=== PATIENT | female | born 1990 | race Caucasian/White ===

== ENCOUNTER 2021-12-29 07:59 | Emergency (ER) | payer OTHER, SELFPAY ==
[2021-12-29 08:02] VITALS: BP 111/78; PULSE 89; RESP 22; TEMP 36.6; O2SAT 98; BMI 77.0
[2021-12-29 08:18] VITALS: BP 111/78; PULSE 89; RESP 22; TEMP 36.6; O2SAT 98
--- NOTE | 2021-12-29 08:26 | CRLHL7_ITS ---
For Patients: As a result of the Century Cures Act, medical imaging exams and procedure reports are released immediately into your electronic medical record. You may view this report before your referring provider. If you have questions, please contact your health care provider. INDICATION: Lower abdominal pain press failed embryo transfer 12/24/2021. TECHNIQUE: Ultrasound pelvis transvaginal for better assessment or to better visualize the endometrium. Real-time sonographic images with spectral and color Doppler imaging of the ovaries were obtained. COMPARISON: Pelvic ultrasound 02/12/2021. FINDINGS: Uterus: 8.2 x 6.5 x 4.3 cm. Normal echotexture of the myometrium. One right submucosal anterior uterine body fibroid measuring 11 x 11 x 8 mm. Endometrium: Transvaginal imaging was performed to better evaluate the endometrium. Endometrial thickness measures 7 mm. No sign of endometrial mass or fluid. Right ovary measures 4.2 x 2.7 x 2.5 cm and left ovary measures 3.7 x 2.1 x 2.5 cm. Right ovarian cyst measuring 2.1 x 1.1 x 1.6 cm. No ovarian or adnexal masses. Normal arterial and venous blood flow is demonstrated in both ovaries. Cul-de-sac: Trace free fluid. IMPRESSION: 1. Right 2.1 cm adnexal cyst. Trace pelvic free fluid. 2. Small anterior uterine body subserosal fibroid. Dictated by Adam Hurd MD @ 12/29/2021 10:00:23 AM (Electronically Signed)
--- NOTE | 2021-12-29 08:26 | CRLHL7_ITS ---
For Patients: As a result of the Century Cures Act, medical imaging exams and procedure reports are released immediately into your electronic medical record. You may view this report before your referring provider. If you have questions, please contact your health care provider. INDICATION: Left lower abdominal pain and pressure TECHNIQUE: CT abdomen and pelvis with 106 mL of Isovue 370 IV contrast. COMPARISON: Pelvic ultrasound 12/29/2021. FINDINGS: The liver is normal in size, shape and attenuation. Gallbladder and biliary tree are normal. The spleen, adrenal glands and pancreas are within normal limits. The kidneys are unremarkable. The bowel is unremarkable. No significant free fluid and no free air. Small right adnexal cyst. No significant pelvic free fluid. The lower chest is unremarkable. IMPRESSION: No evidence of acute intra-abdominal or pelvic abnormality. Please note that all CT scans at this facility use dose modulation, iterative reconstruction, and/or weight-based dosing when appropriate to reduce radiation dose to as low as reasonably achievable. Dictated by Adam Hurd MD @ 12/29/2021 10:07:55 AM (Electronically Signed)
--- NOTE | 2021-12-29 08:29 | ED.GENADULT ---
HPI - General Adult General Time Seen by Provider: 08:29 Date Seen: 12/29/21 Chief complaint: Abdominal Pain Stated complaint: Pain lower left abdomen Time Seen by Provider: 12/29/21 08:21 Source: patient Mode of arrival: ambulatory Limitations: no limitations History of Present Illness HPI narrative: Patient is a 31 white female who has been undergoing in vitro fertilization, but had a negative test last week, who has a history of 2 diagnostic laparoscopic treatments for endometriosis, presents with sudden left lower abdominal pain that is been quite severe, she reports that it feels like someone is ?gripping her insides?. This started about 330 this morning, she has needed since last night. No fevers chills, no dysuria, no hematuria. No chest pain, no shortness of breath, no COVID symptoms. No cough. No history of similar sharp abdominal pain other than with endometriosis she had some difficulty with that. No skin rashes, no leg swelling or edema. Related Data Home Medications Medication Instructions Recorded Confirmed aspirin 81 mg chewable tablet 81 mg PO DAILY 12/29/21 12/29/21 cholecalciferol (vitamin D3) 100 4,000 unit PO DAILY 12/29/21 12/29/21 mcg (4,000 unit) capsule levothyroxine 25 mcg tablet mcg 12/29/21 metformin 500 mg tablet,extended mg PO 12/29/21 release 24 hr oxycodone 5 mg tablet mg 12/29/21 [id number] 1 mg tab PO 12/29/21 tablet triamcinolone acetonide 0.1 % applic TOPICAL 12/29/21 topical cream Previous Rx's Medication Instructions Recorded cephalexin 500 mg capsule 500 mg PO BID #14 cap 12/29/21 Allergies Allergy/AdvReac Type Severity Reaction Status Date / Time chocolate flavor Allergy Severe Anaphylaxis Verified 12/29/21 08:12 adhesive Allergy Mild Verified 12/29/21 08:12 tramadol Allergy Mild vomiting Verified 12/29/21 08:12 and shakes blueberries Allergy Mild upset Uncoded 12/29/21 08:12 stomach Review of Systems Status of ROS: Reports: 10 or more systems reviewed and unremarkable except as noted in History and below [facility] Medical History (Updated 12/29/21 @ 09:07 by Montse Mittal RN) Cervical endometriosis Tubal endometriosis Social History Smoking Status: Never smoker Do you use any of these nicotine containing products: None Second hand tobacco smoke exposure: No How often do you have a drink containing alcohol: never AUDIT-C Alcohol total score: 0 Non-prescribed substance use: denies use service: No Exam Narrative: Exam Narrative: Objective in general the patient is in no marked distress, slightly pale Vital Signs recorded HEENT is unremarkable no scleral icterus, neck supple Chest is clear Heart rhythm regular without murmur Abdomen obese benign nontender post laparoscopic skin scars present. Bowel sounds normoactive patient has some voluntary guarding the left lateral to lower quadrant of her abdomen bowel sounds normoactive Extremities are no edema Neurologic nonfocal Skin warm and dry No flank tenderness Const: Vital Signs, click to edit/add: Vital Signs - 24 hr 12/29/21 08:02 12/29/21 08:18 12/29/21 11:00 Temperature 97.9 F 97.9 F Pulse Rate [Right Pulse Oximeter] 89 89 88 Respiratory Rate 18 Blood Pressure [Ri ght Upper Arm] 111/78 111/78 Pulse Oximetry 98 98 97 Course Vital Signs Vital signs: Initial Vital Signs Temperature 97.9 F 12/29/21 08:02 Temperature Source Temporal Artery Scan 12/29/21 08:02 Pulse Rate 89 12/29/21 08:02 Pulse Rhythm 12/29/21 08:02 Respiratory Rate 22 12/29/21 08:02 Blood Pressure 111/78 12/29/21 08:02 Blood Pressure Mean 89 12/29/21 08:02 Blood Pressure Position Sitting 12/29/21 08:02 Pulse Oximetry 98 12/29/21 08:02 Oxygen Delivery Method 12/29/21 08:02 Vital Signs Temperature 97.9 F 12/29/21 08:02 Pulse Rate 89 12/29/21 08:02 Respiratory Rate 22 12/29/21 08:02 Blood Pressure 111/78 12/29/21 08:02 Pulse Oximetry 98 12/29/21 08:02 Temperature 97.9 F 12/29/21 08:18 Pulse Rate 88 12/29/21 11:00 Respiratory Rate 18 12/29/21 11:00 Blood Pressure 111/78 12/29/21 08:18 Pulse Oximetry 97 12/29/21 11:00 Medical Decision Making MDM Narrative Medical decision making narrative: Patient will be started on IV with morphine as well. Will check test. Depending on test will get pelvic ultrasound, CT scan of the abdomen pelvis with IV contrast given her degree of pain, rule out obstruction, rule out diverticulitis, rule out ovarian torsion. Be unlikely she has an ectopic given that she had a negative test last week but this will be checked again. IV fluid and pain control. Laboratory studies, electrolytes, inflammatory markers. Patient has what appears to be a presumed ET UTI, we treated with IV Rocephin, Keflex at home. Discussed the case with Dr. Sawant, patient given her equivocal hCG quantitative needs a repeat in 48 hours. She lasted a embryo transplant for IVF and December. She does have a significant amount of vaginal bleeding consistent with a period bleed now. But needs repeat hCG as mention. Light activity, Tylenol as needed. Return to ED as needed, consult with [facility] as needed. Also recommend she contact her IVF clinic for additional discussion. Patient understands with the acuity of her abdominal pain that imaging and workup were appropriate, Dr. Lira agreed, and will schedule follow-up with patient in 2 days with a preclinic quantitative HCG. Lab Data Labs: Lab Results 12/29/21 12/29/21 12/29/21 Range/Units 08:47 08:47 08:47 WBC 8.07 (4.50-11.00) K/uL RBC 4.77 (4.00-5.20) m/uL Hgb 14.0 (12.0-16.0) gm/dL Hct 42.6 (33.0-51.0) % MCV 89 (80-100) fL MCH 29 (26-34) pg MCHC 33 (32-36) gm/dL RDW Coeff of Gentry 12.8 (11.5-15.5) % Plt Count 338 (140-440) K/uL Neut % (Auto) 78.3 H (42.0-72.0) % Lymph % (Auto) 13.0 L (20-44) % [place] % (Auto) 8.4 (0.0-11.0) % Eos % (Auto) 0.1 (0.0-7.0) % Baso % (Auto) 0.1 (0.0-3.0) % Neut # (Auto) 6.30 (1.7-7.0) K/uL Lymph # (Auto) 1.00 (0.90-2.90) K/uL [place] # (Auto) 0.70 (0.00-0.90) K/UL Eos # (Auto) 0.01 (0.00-0.50) K/uL Baso # (Auto) 0.01 (0.00-0.30) K/uL Abs Immat Gran (auto) 0.01 (0.00-0.30) K/uL Sodium 138 (135-149) mmol/L Potassium 3.9 (3.6-5.1) mmol/L Chloride 107 (96-114) mmol/L Carbon Dioxide 20 (20-32) mmol/L BUN 11 (5-24) mg/dL Creatinine 0.7 (0.5-1.5) mg/dL Estimated Creat Clear 103.82 Estimated GFR 118 ml/min Glucose 95 (60-115) mg/dL Lactate 1.7 (0.5-1.9) mmol/L Calcium 9.4 (8.4-10.6) mg/dL Total Bilirubin 0.3 (0.1-1.5) mg/dL Direct Bilirubin 0.3 (0.0-0.5) mg/dL AST 30 (12-35) U/L ALT 11 (4-35) U/L Alkaline Phosphatase 122 (40-150) U/L C-Reactive Protein 3.6 H (0.5-1.0) mg/dL Total Protein 8.5 H (6.0-8.3) g/dL Albumin 4.6 (3.3-5.0) g/dL Amylase 115 H (18-89) U/L HCG, Quant 9.99 mIU/mL Urine Color (Yellow) Urine Appearance (Clear) Urine pH (5.0-8.5) Ur Specific [place] (1.000-1.030) Urine Protein (Negative) Urine Glucose (UA) (Negative) Urine Ketones (Negative) Urine Blood (Negative) Urine Nitrite (Negative) Urine Bilirubin (Negative) Urine Urobilinogen (0.2-1.0) Ur Leukocyte Esterase (Negative) Urine RBC (0-2) Urine WBC (0-5) Ur Squamous Epith Cells (None-Few) Urine Bacteria (None) SARS-CoV-2 (PCR) (Negative) 12/29/21 12/29/21 Range/Units 08:50 08:50 WBC (4.50-11.00) K/uL RBC (4.00-5.20) m/uL Hgb (12.0-16.0) gm/dL Hct (33.0-51.0) % MCV (80-100) fL MCH (26-34) pg MCHC (32-36) gm/dL RDW Coeff of Gentry (11.5-15.5) % Plt Count (140-440) K/uL Neut % (Auto) (42.0-72.0) % Lymph % (Auto) (20-44) % [place] % (Auto) (0.0-11.0) % Eos % (Auto) (0.0-7.0) % Baso % (Auto) (0.0-3.0) % Neut # (Auto) (1.7-7.0) K/uL Lymph # (Auto) (0.90-2.90) K/uL [place] # (Auto) (0.00-0.90) K/UL Eos # (Auto) (0.00-0.50) K/uL Baso # (Auto) (0.00-0.30) K/uL Abs Immat Gran (auto) (0.00-0.30) K/uL Sodium (135-149) mmol/L Potassium (3.6-5.1) mmol/L Chloride (96-114) mmol/L Carbon Dioxide (20-32) mmol/L BUN (5-24) mg/dL Creatinine (0.5-1.5) mg/dL Estimated Creat Clear Estimated GFR ml/min Glucose (60-115) mg/dL Lactate (0.5-1.9) mmol/L Calcium (8.4-10.6) mg/dL Total Bilirubin (0.1-1.5) mg/dL Direct Bilirubin (0.0-0.5) mg/dL AST (12-35) U/L ALT (4-35) U/L Alkaline Phosphatase (40-150) U/L C-Reactive Protein (0.5-1.0) mg/dL Total Protein (6.0-8.3) g/dL Albumin (3.3-5.0) g/dL Amylase (18-89) U/L HCG, Quant mIU/mL Urine Color Red A (Yellow) Urine Appearance Cloudy A (Clear) Urine pH 6.0 (5.0-8.5) Ur Specific [place] 1.010 (1.000-1.030) Urine Protein 2+ A (Negative) Urine Glucose (UA) Negative (Negative) Urine Ketones Negative (Negative) Urine Blood 3+ A (Negative) Urine Nitrite Negative (Negative) Urine Bilirubin Negative (Negative) Urine Urobilinogen 0.2 (0.2-1.0) Ur Leukocyte Esterase 2+ A (Negative) Urine RBC >100 A (0-2) Urine WBC 25-50 A (0-5) Ur Squamous Epith Cells Moderate A (None-Few) Urine Bacteria Few A (None) SARS-CoV-2 (PCR) POSITIVE SARS-CoV-2 A (Negative) Discharge Plan Discharge Clinical Impression: Abdominal pain, Endometriosis Patient Disposition: Home w/ Parent or Adult Condition: Improved Additional Instructions: light activity, recheck clinic 2 days/blood test before visit, fluids, tylenol. mask due to pos covid. keflex x 7 days for presumed uti [facility] with an 8am arrival time. Follow up appointment for your results are also scheduled on 12/31 with a 2:30pm arrival time. Discharge Diet: Regular Prescriptions: New cephalexin 500 mg capsule 500 mg PO BID Qty: 14 0RF No Action triamcinolone acetonide 0.1 % cream TOPICAL 0RF Label Comments: APPLY TOPICALLY TO THE AFFECTED AREA THREE TIMES DAILY levothyroxine 25 mcg tablet 0RF Label Comments: TAKE 1 TABLET BY MOUTH EVERY DAY DIRECTED metformin 500 mg tablet extended release 24 hr PO 0RF Label Comments: TAKE 1 TABLET BY MOUTH TWICE DAILY FOR 2 WEEKS. INCREASE TO 2 TABLETS BY MOUTH 2 TIMES DAILY oxycodone 5 mg tablet 0RF Label Comments: 5 MG PO Q6H PRN MDD: 20 aspirin 81 mg tablet,chewable 81 mg PO DAILY 0RF cholecalciferol (vitamin D3) 100 mcg (4,000 unit) capsule 4,000 unit PO DAILY 0RF pkzokvvl-ubp-Hi-FA 1 mg tablet PO 0RF Stand Alone Forms: [facility] Info Instructions
[2021-12-29] MEDS: MORPHINE 4 MG/ML INJ IVP (08:51)
[2021-12-29] MEDS: 0.9 % SODIUM CHLORIDE 1000 ml 1,000 ML 6000 ML IV (08:51)
[2021-12-29 09:02] LABS: Lactate* 1.7 mmol/L (0.5-1.9)
[2021-12-29 09:03] LABS: Basophils Absolute Auto 0.01 K/uL (0.00-0.30); Basophils Percent Auto 0.1 % (0.0-3.0); Eosinophils Absolute Auto 0.01 K/uL (0.00-0.50); Eosinophils Percent Auto 0.1 % (0.0-7.0); Hematocrit 42.6 % (33.0-51.0); Immature Granulocytes Abs Auto 0.01 K/uL (0.00-0.30); Mean Corpuscular HGB Conc 33 gm/dL (32-36); Mean Corpuscular Hemoglobin 29 pg (26-34); Mean Corpuscular Volume 89 fL (80-100); Monocytes Percent Auto 8.4 % (0.0-11.0); Neutrophils Percent Auto 78.3 % (42.0-72.0); Platelet Count* 338 K/uL (140-440); RDW Coefficient of Variation % 12.8 % (11.5-15.5); Red Blood Count 4.77 m/uL (4.00-5.20); White Blood Count* 8.07 K/uL (4.50-11.00)
[2021-12-29 09:03] LABS: Appearance Urine Cloudy (Clear); Bilirubin Urine Negative (Negative); Color Urine Red (Yellow); Glucose Urine Negative (Negative); Ketones Urine Negative (Negative)
[2021-12-29 09:04] LABS: Blood Urine 3+ (Negative); Leukocyte Esterase Urine 2+ (Negative); Nitrite Urine Negative (Negative); Protein Urine 2+ (Negative); Urobilinogen Urine 0.2 (0.2-1.0)
[2021-12-29 09:12] LABS: RBC Urine >100 (0-2)
[2021-12-29 09:13] LABS: Bacteria Urine Few; Squamous Epithelial Cell Urine Moderate (None-Few); WBC Urine 25-50 (0-5)
[2021-12-29 09:21] LABS: Albumin* 4.6 g/dL (3.3-5.0); Chloride* 107 mmol/L (96-114); Sodium* 138 mmol/L (135-149)
[2021-12-29 09:22] LABS: Potassium* 3.9 mmol/L (3.6-5.1)
[2021-12-29 09:23] LABS: Amylase* 115 U/L (18-89); Creatinine* 0.7 mg/dL (0.5-1.5); Est. Creatinine Clearance* 103.82; Estimated Glomerular Filt Rate 118 ml/min
[2021-12-29 09:24] LABS: Alanine Aminotransferase* 11 U/L (4-35); Alkaline Phosphatase* 122 U/L (40-150); Aspartate Amino Transferase* 30 U/L (12-35); Bilirubin Direct* 0.3 mg/dL (0.0-0.5); Bilirubin Total* 0.3 mg/dL (0.1-1.5); Blood Urea Nitrogen* 11 mg/dL (5-24); Carbon Dioxide* 20 mmol/L (20-32); Glucose* 95 mg/dL (60-115); Total Protein* 8.5 g/dL (6.0-8.3)
[2021-12-29 09:25] LABS: Calcium* 9.4 mg/dL (8.4-10.6)
[2021-12-29 09:27] LABS: C Reactive Protein* 3.6 mg/dL (0.5-1.0)
[2021-12-29 09:33] LABS: Slide Review Reflex No
[2021-12-29 09:41] LABS: HCG Quantitative* 9.99 mIU/mL
[2021-12-29 09:54] LABS: SARS PCR* POSITIVE SARS-CoV-2 (Negative)
[2021-12-29] MEDS: HYDROmorphone 0.5 mg/0.5 ml inj IVP (10:36)
[2021-12-29] MEDS: cefTRIAXone 1 GM in 0.9 % SODIUM CHLORIDE Mini-bag 100 ML IVPB (10:41)
[2021-12-29 11:00] VITALS: PULSE 88; RESP 18; O2SAT 97
== END 2021-12-29 11:54 | disposition home or self-care (01) ==
PROVIDERS: Emergency Provider Family Medicine; PCP Physician Assistant Medical
DX: N80.9 Endometriosis, unspecified (principal)
CPT/HCPCS: 36415; 74177; 76830; 80048; 80076; 81001; 82150; 83605; 84702; 85025; 86140; 87086; 87635; 93976; 96365; 96375; 99284; 99285; J0696; J1170; J2270; J7030; Q9967

== ENCOUNTER 2021-12-31 16:36 | Outpatient (CLI) | payer OTHER, SELFPAY ==
[2021-12-31 11:22] LABS: HCG Quantitative* < 2.39 mIU/mL
== END 2021-12-31 16:37 | disposition home or self-care (01) ==
PROVIDERS: PCP Physician Assistant Medical; Visit Provider Physician Assistant
DX: R10.9 Unspecified abdominal pain (principal)
CPT/HCPCS: 84702

== ENCOUNTER 2022-09-16 07:01 | Outpatient (CLI) | payer OTHER, SELFPAY ==
--- NOTE | 2022-09-16 07:15 | CRLHL7_ITS ---
For Patients: As a result of the Century Cures Act, medical imaging exams and procedure reports are released immediately into your electronic medical record. You may view this report before your referring provider. If you have questions, please contact your health care provider. INDICATION: First trimester scan, establish dates. COMPARISON: None. TECHNIQUE: Real-time gibbons-scale imaging of the pelvis was performed. FINDINGS: Two gestational sacs are present within the endometrial canal. Left-sided subchorionic hemorrhage noted measuring 3.1 x 1.5 x 2.8 cm. Small uterine fibroid is present posteriorly measuring 1.3 x 1.1 x 1.1 cm. One gestational sac has a mean sac diameter of 21.4 millimeters and contains a pole measuring 9.8 millimeters, 7 weeks 0 days. However, there are no heart tones with this pole. Second gestational sac is present. This contains a viable pole measuring 1.9 cm, 8 weeks 3 days and heart rate 169 beats per minute. Both ovaries appear normal. Corpus luteal cyst left ovary. IMPRESSION: Single living intrauterine with sonographic gestational age 8 weeks 3 days and sonographic due date 04/25/2023. Left-sided subchorionic hemorrhage measuring 3.1 x 1.5 x 2.8 cm. Small posterior intramural fibroid measuring 1.3 x 1.1 x 1.1 cm within the mid uterus. Nonviable 2nd pole within a separate gestational sac. Dictated by Matthew Dorman MD @ 09/16/2022 10:15:49 AM (Electronically Signed)
== END 2022-09-16 07:02 | disposition home or self-care (01) ==
PROVIDERS: PCP Physician Assistant Medical; Visit Provider Registered Nurse
DX: O20.9 Hemorrhage in early pregnancy, unspecified (principal); Z34.91 Encounter for supervision of normal pregnancy, unspecified, first trimester; Z3A.08 8 weeks gestation of pregnancy
CPT/HCPCS: 0353U; 76817; 84443; 86592; 86703; 86762; 86787; 86803; 86850; 86900; 86901; 87086; 87340; 87491; 87591

== ENCOUNTER 2022-09-16 22:05 | Emergency (ER) | payer OTHER, SELFPAY ==
[2022-09-16 22:10] VITALS: BP 147/87; PULSE 107; RESP 18; TEMP 37; O2SAT 99; BMI 36.6
--- NOTE | 2022-09-16 22:19 | CRLHL7_ITS ---
For Patients: As a result of the Century Cures Act, medical imaging exams and procedure reports are released immediately into your electronic medical record. You may view this report before your referring provider. If you have questions, please contact your health care provider. INDICATION: 1st trimester bleeding COMPARISON: 09/16/2022 TECHNIQUE: Real-time gibbons-scale imaging of the pelvis was performed. FINDINGS: Lower uterine segment blood products are present measuring 2.4 x 1.0 x 1.7 cm. Single living pole is again noted with crown-rump length measuring 1.9 cm, 8 weeks 3 days, heart rate 169 beats per minute, unchanged from earlier today. demise of twin gestation again noted. IMPRESSION: Blood products are now present within the lower uterine segment compared to the prior study. Dictated by Matthew Dorman MD @ 09/18/2022 10:29:28 AM (Electronically Signed)
--- NOTE | 2022-09-16 22:24 | ED.PREGNANCY ---
HPI - General Chief complaint: Vaginal Bleeding Stated complaint: 8 weeks , Active bleeding Time Seen by Provider: 09/16/22 22:23 History of Present Illness HPI Narrative: Patient is a 32-year-old woman who is 8 weeks with her 3rd who began as spontaneous bleeding of bright red blood per vagina 1 hour ago. She has no abdominal pain no cramping. No passage of clots. She has had no nausea no vomiting no fevers no chills. She has had previous miscarriages. She states that she is B negative blood type. She had her 1st OB appointment today and all went well. Related Data Home Medications Medication Instructions Recorded Confirmed aspirin 81 mg chewable tablet 81 mg PO DAILY 12/29/21 09/16/22 cholecalciferol (vitamin D3) 100 4,000 unit PO DAILY 12/29/21 09/16/22 mcg (4,000 unit) capsule flolwajz-gat-Dj-FA 1 mg tab PO 12/29/21 09/16/22 tablet triamcinolone acetonide 0.1 % applic topical 12/29/21 09/16/22 topical cream enoxaparin 40 mg/0.4 mL 40 mg subcut Q24H 09/16/22 09/16/22 subcutaneous syringe (Lovenox) estradiol 2 mg tablet (Estrace) 2 mg PO BID 09/16/22 09/16/22 levothyroxine 50 mcg capsule 50 mcg PO QDAY 09/16/22 09/16/22 metformin 500 mg tablet,extended 1,000 mg PO BID 09/16/22 09/16/22 release 24 hr progesterone 50 mg/mL 50 mg IM QDAY 09/16/22 09/16/22 intramuscular oil Allergies Allergy/AdvReac Type Severity Reaction Status Date / Time chocolate flavor Allergy Severe Anaphylaxis Verified 09/16/22 10:50 adhesive Allergy Mild Verified 09/16/22 10:50 tramadol Allergy Mild vomiting Verified 09/16/22 10:50 and shakes blueberries Allergy Mild upset Uncoded 09/16/22 10:50 stomach Review of Systems Status of ROS: Reports: 10 or more systems reviewed and unremarkable except as noted in History and below [facility] Medical History Cervical endometriosis ?N80.0 - Endometriosis of uterus (ICD-10) Endometriosis ?N80.9 - Endometriosis, unspecified (ICD-10) GERD (gastroesophageal reflux disease) ?K21.9 - Gastro-esophageal reflux disease without esophagitis (ICD-10) Tubal endometriosis ?N80.2 - Endometriosis of fallopian tube (ICD-10) Surgical History History of arthroscopic knee surgery ?Z98.890 - Other specified postprocedural states (ICD-10) History of bilateral salpingectomy ?Z90.79 - Acquired absence of other genital organ(s) (ICD-10) History of laparoscopy ?Z98.890 - Other specified postprocedural states (ICD-10) History of open reduction and internal fixation (ORIF) procedure ?Z98.890 - Other specified postprocedural states (ICD-10) Family History Family/Other Coronary artery disease Stroke High blood pressure High cholesterol Paternal Grandmother Cancer Social History Smoking Status: Former smoker Do you use any of these nicotine containing products: None Second hand tobacco smoke exposure: No How often do you have a drink containing alcohol: never AUDIT-C Alcohol total score: 0 Non-prescribed substance use: denies use Little interest or pleasure in doing things: not at all Feeling down, depressed, or hopeless: several days service: No Exam Narrative: Exam Narrative: EXAM GENERAL: Patient appears comfortable and well. EYES: No scleral icterus. ENT: Tympanic membranes and oropharynx normal. THYROID: no thyroid nodules or thyromegaly. LYMPH: No supraclavicular or cervical lymphadenopathy. SKIN: Visible skin seen during exam normal or with benign process only. EXT: No dependent lower extremity pedal edema. HEART: Regular rate and rhythm with no murmurs, rubs, or gallops. LUNGS: Clear to auscultation bilaterally with no crackles or wheezes. ABD: Soft, non tender, non distended. PSYCH: Good eye contact, speech is not pressured. Const: Vital Signs, click to edit/add: Vital Signs - 24 hr 09/16/22 22:10 09/16/22 23:00 09/17/22 00:01 Temperature 98.6 F Pulse Rate [Pulse Oximeter] 107 H 91 90 Respiratory Rate 18 18 18 Blood Pressure [Le ft Upper Arm] 147/87 H 118/63 131/63 Pulse Oximetry 99 98 98 Oxygen Delivery Me thod Room Air Room Air Room Air Course Course Hospital Course: Patient seen examined. 1 L of normal saline given CBC basic metabolic panel quantitative beta HCG and OB ultrasound ordered. Vital Signs Vital signs: Initial Vital Signs Temperature 98.6 F 09/16/22 22:10 Temperature Source Temporal Artery Scan 09/16/22 22:10 Pulse Rate 107 H 09/16/22 22:10 Respiratory Rate 18 09/16/22 22:10 Blood Pressure 147/87 H 09/16/22 22:10 Blood Pressure Mean 107 09/16/22 22:10 Blood Pressure Position Sitting 09/16/22 22:10 Pulse Oximetry 99 09/16/22 22:10 Oxygen Delivery Method Room Air 09/16/22 22:10 Vital Signs Temperature 98.6 F 09/16/22 22:10 Pulse Rate 107 H 09/16/22 22:10 Respiratory Rate 18 09/16/22 22:10 Blood Pressure 147/87 H 09/16/22 22:10 Pulse Oximetry 99 09/16/22 22:10 Oxygen Delivery Method Room Air 09/16/22 22:10 Temperature 98.6 F 09/16/22 22:10 Pulse Rate 90 09/17/22 00:01 Respiratory Rate 18 09/17/22 00:01 Blood Pressure 131/63 09/17/22 00:01 Pulse Oximetry 98 09/17/22 00:01 Oxygen Delivery Method Room Air 09/17/22 00:01 MDM - OB/Uterine Contractions MDM Narrative Medical decision making narrative: Patient is a 32-year-old woman who has had 2 previous miscarriages as endometriosis who is undergoing in vitro fertilization. She is caring twins but unfortunately 1 of the twins had demise 2 weeks ago. Patient was in to see Ob today and ultrasound showed demise of fetus a with healthy appearing fetus B. all was going well patient is on Lovenox and aspirin. Patient began bleeding less than a pad an hour approximatly an hour prior to arrival. Laboratory studies are finding upon my review ultrasound shows unchanged of fetus B with demise of feet his a. I did review the case with OBGYN in the do recommend discontinuing the Lovenox with outpatient follow-up this week. Patient's blood type is B negative and we did give her RhoGAM. Patient is discharged home to continue her current care and follow up with OB as described. Differential diagnosis includes spontaneous placenta previa placenta abruption demise Lab Data Labs: Lab Results 09/16/22 Range/Units 22:32 WBC 13.12 H (4.50-11.00) K/uL RBC 4.29 (4.00-5.20) m/uL Hgb 12.5 (12.0-16.0) gm/dL Hct 37.6 (33.0-51.0) % MCV 88 (80-100) fL MCH 29 (26-34) pg MCHC 33 (32-36) gm/dL RDW Coeff of Gentry 13.3 (11.5-15.5) % Plt Count 420 (140-440) K/uL Neut % (Auto) 75.9 H (42.0-72.0) % Lymph % (Auto) 17.6 L (20-44) % [place] % (Auto) 5.0 (0.0-11.0) % Eos % (Auto) 0.4 (0.0-7.0) % Baso % (Auto) 0.1 (0.0-3.0) % Neut # (Auto) 10.00 H (1.7-7.0) K/uL Lymph # (Auto) 2.30 (0.90-2.90) K/uL [place] # (Auto) 0.70 (0.00-0.90) K/UL Eos # (Auto) 0.10 (0.00-0.50) K/uL Baso # (Auto) 0.00 (0.00-0.30) K/uL Sodium 133 L (135-149) mmol/L Potassium 4.1 (3.6-5.1) mmol/L Chloride 105 (96-114) mmol/L Carbon Dioxide 21 (20-32) mmol/L BUN 12 (5-24) mg/dL Creatinine 0.7 (0.5-1.5) mg/dL Estimated Creat Clear 102.86 Estimated GFR 117 ml/min Glucose 113 (60-115) mg/dL Calcium 10.0 (8.4-10.6) mg/dL HCG, Quant > 09098.00 mIU/mL Discharge Plan Discharge Clinical Impression: Vaginal bleeding Patient Disposition: Home, Self-Care Condition: Stable Additional Instructions: Discontinue Lovenox Continue cares previous Report any changes in bleeding Follow-up with OBGYN this coming week. Activity Level: No Restrictions Discharge Diet: Regular Prescriptions: No Action levothyroxine 50 mcg capsule 50 mcg PO QDAY progesterone 50 mg/mL oil 50 mg IM QDAY estradiol [Estrace] 2 mg tablet 2 mg PO BID Patient Comments: vaginally enoxaparin [Lovenox] 40 mg/0.4 mL syringe 40 mg subcut Q24H triamcinolone acetonide 0.1 % cream TOPICAL Patient Comments: APPLY TOPICALLY TO THE AFFECTED AREA THREE TIMES DAILY aspirin 81 mg tablet,chewable 81 mg PO DAILY cholecalciferol (vitamin D3) 100 mcg (4,000 unit) capsule 4,000 unit PO DAILY mzbuhmva-hiq-Tn-FA 1 mg tablet PO metformin 500 mg tablet extended release 24 hr 1,000 mg PO BID Patient Comments: 1,000 mg BID Follow Up/Referrals: Grazyna Escamilla PA-C [Referring] - Stand Alone Forms: [email or web address] Info Instructions
[2022-09-16 22:50] LABS: Basophils Percent Auto 0.1 % (0.0-3.0); Eosinophils Percent Auto 0.4 % (0.0-7.0); Hematocrit 37.6 % (33.0-51.0); Hemoglobin* 12.5 gm/dL (12.0-16.0); Lymphocytes Percent Auto 17.6 % (20-44); Mean Corpuscular HGB Conc 33 gm/dL (32-36); Mean Corpuscular Hemoglobin 29 pg (26-34); Mean Corpuscular Volume 88 fL (80-100); Neutrophils Percent Auto 75.9 % (42.0-72.0); Platelet Count* 420 K/uL (140-440); RDW Coefficient of Variation % 13.3 % (11.5-15.5); Red Blood Count 4.29 m/uL (4.00-5.20); White Blood Count* 13.12 K/uL (4.50-11.00)
[2022-09-16 22:54] LABS: Slide Review Reflex No
[2022-09-16] MEDS: 0.9 % SODIUM CHLORIDE 1000 ml 1,000 ML IV (22:55)
[2022-09-16 23:00] VITALS: BP 118/63; PULSE 91; RESP 18; O2SAT 98
[2022-09-16 23:07] LABS: Chloride* 105 mmol/L (96-114); Potassium* 4.1 mmol/L (3.6-5.1); Sodium* 133 mmol/L (135-149)
[2022-09-16 23:10] LABS: Blood Urea Nitrogen* 12 mg/dL (5-24); Carbon Dioxide* 21 mmol/L (20-32); Creatinine* 0.7 mg/dL (0.5-1.5); Est. Creatinine Clearance* 102.86; Estimated Glomerular Filt Rate 117 ml/min; Glucose* 113 mg/dL (60-115)
--- NOTE | 2022-09-16 23:23 | PC.NURSE ---
patient to [facility], states that bleeding has slowed down to spotting.
[2022-09-17 00:01] VITALS: BP 131/63; PULSE 90; RESP 18; O2SAT 98
[2022-09-17 00:50] VITALS: BP 131/63; PULSE 91; RESP 18; TEMP 36.6; O2SAT 98
--- NOTE | 2022-09-17 00:53 | PC.NURSE ---
patient discharged with , no pain, understands DC instruction and no further questions. Rhophylac injection given per TAR in L buttocks per patient request. Rhophylac info sheet filled out and given to patient.
== END 2022-09-17 00:47 | disposition home or self-care (01) ==
PROVIDERS: Emergency Provider Internal Medicine; PCP Student in an Organized Health Care Education/Training Program
DX: O20.9 Hemorrhage in early pregnancy, unspecified (principal); Z3A.08 8 weeks gestation of pregnancy
CPT/HCPCS: 36415; 36430; 76817; 80048; 84702; 85025; 85461; 99283; 99284; J2791; J7030

== ENCOUNTER 2023-02-03 09:09 | Outpatient (CLI) | payer OTHER, SELFPAY | END 2023-02-03 09:10 | disposition home or self-care (01) | LOC: NFLDREF 09:11 | PROVIDERS: PCP Student in an Organized Health Care Education/Training Program; Visit Provider Advanced Practice Midwife | DX: Z34.93 Encounter for supervision of normal pregnancy, unspecified, third trimester (principal); Z3A.28 28 weeks gestation of pregnancy | CPT/HCPCS: 84443; 86592; 86850; J2791 ==

== ENCOUNTER 2023-03-03 12:52 | Outpatient (CLI) | payer OTHER, SELFPAY ==
--- NOTE | 2023-03-03 13:00 | CRLHL7_ITS ---
For Patients: As a result of the Century Cures Act, medical imaging exams and procedure reports are released immediately into your electronic medical record. You may view this report before your referring provider. If you have questions, please contact your health care provider. INDICATION: Third trimester scan, evaluate growth. IVF. COMPARISON: 09/17/2022 TECHNIQUE: Real time gibbons scale imaging of the fetus was performed. FINDINGS: Sonographic imaging demonstrates a single living intrauterine gestation. Fetus demonstrates a regular cardiac rate of 130 beats per minute. Fetus has a breech position. The placenta lies right anterior. Amniotic fluid volume appears normal and there is a single deepest vertical pocket: 9.1 cm. MAYITO 23.3 cm. The estimated weight is 1849gm which lies at the 26th %. BPD 25th percentile. HC 31st percentile. AC 28th percentile. FL 29th percentile. The HC/AC ratio measures 1.08 range (0.96-1.14). IMPRESSION: Sonographic gestational age 32 weeks 1 day and sonographic due date of 04/27/2023. Good correlation with dates. Normal interval growth. Estimated weight 26th percentile. Abdominal circumference 28th percentile. Dictated by Matthew Dorman MD @ 03/03/2023 3:36:16 PM (Electronically Signed)
== END 2023-03-03 12:53 | disposition home or self-care (01) ==
LOC: US 12:52
PROVIDERS: PCP Student in an Organized Health Care Education/Training Program; Visit Provider Advanced Practice Midwife
DX: Z34.93 Encounter for supervision of normal pregnancy, unspecified, third trimester (principal); Z3A.32 32 weeks gestation of pregnancy
CPT/HCPCS: 76816

== ENCOUNTER 2023-03-17 15:03 | Outpatient (CLI) | payer OTHER, SELFPAY | END 2023-03-17 15:04 | disposition home or self-care (01) | LOC: NFLDREF 03-21 10:43 | PROVIDERS: PCP Student in an Organized Health Care Education/Training Program; Referring Provider Student in an Organized Health Care Education/Training Program; Visit Provider Advanced Practice Midwife | DX: Z34.83 Encounter for supervision of other normal pregnancy, third trimester (principal); O99.283 Endocrine, nutritional and metabolic diseases complicating pregnancy, third trimester; Z3A.34 34 weeks gestation of pregnancy | CPT/HCPCS: 84443 ==

== ENCOUNTER 2023-03-31 12:47 | Outpatient (CLI) | payer OTHER, SELFPAY ==
--- NOTE | 2023-03-31 13:00 | CRLHL7_ITS ---
For Patients: As a result of the Century Cures Act, medical imaging exams and procedure reports are released immediately into your electronic medical record. You may view this report before your referring provider. If you have questions, please contact your health care provider. INDICATION: RE-EVALUATE PRESENTATION, BPP, IVF TECHNIQUE: Real time gibbons scale imaging of the fetus was performed. COMPARISON: 03/03/2023 FINDINGS: Sonographic imaging demonstrates a single living intrauterine gestation. Fetus demonstrates a regular cardiac rate of 134 beats per minute. Fetus has a oblique breech position. The placenta lies anteriorly. Amniotic fluid volume appears normal and there is a single deepest pocket of 8.2 cm. MAYITO 22.7 cm. The estimated weight is 2554gm which lies at the 19th %. On the prior OB ultrasound dated 03/03/2023 the estimated weight was at the 26th percentile. BPD less than 3rd percentile. HC 8th percentile. AC 18th percentile. FL 35th percentile. The fetus was active and demonstrated normal breathing movements. There was normal flexion and extension of the trunk and extremities. IMPRESSION: Normal biophysical profile score 8/8. Sonographic gestational age 34 weeks 6 days and sonographic due date 05/06/2023. Sonographic age 10 days behind the clinical age. Estimated weight 19th percentile. Abdominal circumference 18th percentile. BPD less than 3rd percentile. Dictated by Matthew Dorman MD @ 03/31/2023 3:16:32 PM (Electronically Signed)
== END 2023-03-31 12:48 | disposition home or self-care (01) ==
LOC: US 12:47
PROVIDERS: PCP Student in an Organized Health Care Education/Training Program; Visit Provider Advanced Practice Midwife
DX: O09.813 Supervision of pregnancy resulting from assisted reproductive technology, third trimester (principal); O36.5930 Maternal care for other known or suspected poor fetal growth, third trimester, not applicable or unspecified; Z3A.34 34 weeks gestation of pregnancy
CPT/HCPCS: 76816; 76819; 87081; 87653

== ENCOUNTER 2023-04-05 08:10 | Outpatient (CLI) | payer OTHER, SELFPAY ==
[2023-04-05 08:27] VITALS: PULSE 112; O2SAT 97
[2023-04-05 08:28] VITALS: BP 139/85; PULSE 94
[2023-04-05 08:48] VITALS: BP 127/76; PULSE 87
[2023-04-05] MEDS: TERBUTALINE 1 MG/ML INJ 0.25 MG SUBCUT (09:31)
--- NOTE | 2023-04-05 10:10 | W.PM.GYNPROC ---
Procedure Note Time Seen by Provider: 10:10 Date of procedure: 04/05/23 Pre-op diagnosis: 37 weeks gestation, breech presentation Post-op diagnosis: same Procedure: External cephalic version Anesthesia: other (Nitrous) Complications: None Surgeon: Sheila Walsh MD Trimming Cutter: Maria Isabel Medrano Condition: stable Disposition: observation Procedure Description: PREOPERATIVE DIAGNOSIS: 1. Intrauterine at 37 weeks gestation. 2. Footling presentation. POSTOPERATIVE DIAGNOSIS: 1. Intrauterine at 37 weeks gestation. 2. Footling presentation. PROCEDURE: 1. Nonstress test. 2. Limited OB ultrasound. 3. External cephalic version. SURGEON: Jillian. SECRETARY TO THE VICE PRESIDENT: Mitchell. ANESTHESIA: None. COMPLICATIONS: None. FINDINGS: Nonstress test: heart rate baseline 140 beats per minute, good variability, 15 x 15 accelerations present, no decelerations, category 1. Limited OB ultrasound: Single, living, intrauterine gestation in a footling breech presentation with the back along the maternal right, breech in the left lower quadrant, head in the right upper quadrant, grossly normal amniotic fluid volume. PROCEDURE NOTE: A nonstress test was performed, which was reactive and reassuring. A limited OB ultrasound was performed at the bedside to determine position. Findings noted above. Informed consent was obtained for external cephalic version. Terbutaline 0.25 mg was administered to the patient subcutaneously. External cephalic version was attempted. I applied downward pressure to the vertex, Maria Isabel Medrano applied a port pressure to the breech, and we attempted to gently coax the fetus in a forward roll in a counter-clockwise direction. This attempt was unsuccessful. At this point, the patient requested nitrous oxide gas, consent was obtained, and the gas was self-administered. A 2nd attempt was made to coax the in a forward roll in a counter-clockwise direction, as I applied pressure to the breech and Maria Isabel applied pressure to the vertex. This attempt was unsuccessful. A 3rd attempt was made as well, which was unsuccessful. heart tones were noted to be normal between and after the attempts. The patient tolerated the procedure well. monitoring for 1 hour after the procedure was continued to be reassuring. RhoGAM was ordered to be administered prior to discharge, for maternal Rh-negative status.
--- NOTE | 2023-04-05 15:28 | PC.OBNST ---
NST Note NST Note Start: 04/05/23 08:29 Freq: ONCE Status: Active Protocol: Document 04/05/23 15:22 DENIZ (Rec: 04/05/23 15:28 [email or web address] [id number]) NST Note 3 Para (# of births) 0 EDC 04/26/23 Gestational Age In Weeks & Days 37 Weeks & 0 Days Patient Presented with Complaint(s) of Leaking fluid,Other Other Complaints Here for ECV Reactive Yes Appropriate for Gestational Age Yes MABEL Villegas RN Date 04/05/23 Reactive Yes Appropriate for Gestational Age Yes MABEL Harris RN Date 04/05/23 OB NST charge Yes Complete NST Note via Write Note Yes The provider's electronic signature indicates the NST is reactive/appropriate for gestational age. *Note to provider: If an addendum is required, open the patient's chart and click on the note under the Nurse/Allied Health tab.
== END 2023-04-05 11:45 | disposition home or self-care (01) ==
LOC: OB 11:36 → OB CLI 12:55 → OB 12:56
PROVIDERS: PCP Student in an Organized Health Care Education/Training Program; Visit Provider Obstetrics & Gynecology
DX: O32.8XX0 Maternal care for other malpresentation of fetus, not applicable or unspecified (principal); O47.1 False labor at or after 37 completed weeks of gestation; Z3A.37 37 weeks gestation of pregnancy; Z29.13 Encounter for prophylactic Rho(D) immune globulin
CPT/HCPCS: 36415; 59025; 59412; 76815; 85461; 99211; J2791; J3105

== ENCOUNTER 2023-04-16 22:10 | Inpatient (IN) | payer OTHER, SELFPAY ==
[2023-04-16] VITALS (11 sets, daily range): BP systolic 124–165; BP diastolic 66–106; PULSE 85–107; RESP 16; TEMP 37; BMI 43.1
[2023-04-16 20:40] LABS: Hematocrit 35.3 % (33.0-51.0); Hemoglobin* 11.7 gm/dL (12.0-16.0); Mean Corpuscular HGB Conc 33 gm/dL (32-36); Mean Corpuscular Hemoglobin 30 pg (26-34); Mean Corpuscular Volume 91 fL (80-100); Platelet Count* 288 K/uL (140-440); Red Blood Count 3.88 m/uL (4.00-5.20); Slide Review Reflex No; White Blood Count* 12.05 K/uL (4.50-11.00)
[2023-04-16 20:58] LABS: Creatinine Urine 28.2 mg/dL; Total Protein Urine 12 mg/dL
[2023-04-16 21:00] LABS: Alanine Aminotransferase* 11 U/L (4-35); Aspartate Amino Transferase* 42 U/L (12-35); Blood Urea Nitrogen* 12 mg/dL (5-24); Creatinine* 0.7 mg/dL (0.5-1.5); Estimated Glomerular Filt Rate 117 ml/min
--- NOTE | 2023-04-16 22:13 | P.LDBA_ITS ---
Subjective History of Present Illness Narrative: Patient is being admitted to Labor and Delivery for delivery after being diagnosed with preeclampsia w/o severe features tonight. She is a 32 year old at 38 4/7 weeks gestation. Her full history and physical was dictated by Everardo Medrano on 04/07/23. Please see this for details. Patient presents to L&D due to concerns with frequent uterine contractions. She was found upon admission with mild range elevated blood pressure. Patient already had an elevated diastolic blood pressure last week in clinic. Labs collected upon admission also show elevated protein in urine, consistent with preeclampsia w/o severe features. Patient is a CNM patient, but since baby is breech I was consulted for delivery. Patient states that she has experienced headaches recently, but no visual changes or pain in the upper abdomen. Specific Issues/Plans H&P 04/07/23 by Everardo Medrano, ROSMERY : Alec 1. IVF . Initially a TWIN . At 7+ weeks, only GRAJEDA. Level 2 u/s with echo Growth ultrasound at 32 weeks: 26%, breech, MAYITO 23.3 Weekly NST starting at 36 weeks: declines. Agreeable to BPP with US at 36 weeks. Growth at 36: EFW 19%, BPP 8/8, MAYITO 22.7 2. BMI 36.9 Hgb A1C: 5.4% D/c metformin Is on ASA 3. Subclinical hypothyroidism. Levothyroxine 50mcg TSH and T4 each trimester. 09/16/22: TSH 0.794 Plans to stop 01/06 and recheck labs at 28 weeks: 1.9 34 weeks: 4. Rh NEGATIVE Rhogam 28 weeks: received Rhogam PP: 5. BARB 3.1 x 1.5 x 2.8 cm 6. Small posterior intramural fibroid measuring 1.3 x 1.1 x 1.1 cm within the mid uterus 7. Anxiety. H/o depression. Concerned about PP depression. Consider SSRI before delivery. 8. Anemia and fatigue at 28 weeks. Started EOD iron supplement. 9. Breech at 32 weeks US ordered for 36 weeks: Breech/Oblique Unsuccessful ECV. Plan scheduled c/s. Covid: unvaccinated. Recommend. Discussed risk of covid infection. Patient declines vaccine. Flu: declines TDAP: 02/17/2023 RSV: 04/03/23 32wk Mental Health: 03/03/2023 OB - Problem Based A/P Additional Plan (1) Pre-eclampsia in third trimester: Status: Acute Plan: Preeclampsia w/o severe features, delivery indicated. (2) Breech presentation: Status: Acute Plan: Bedside US confirms persistent breech presentation, recommend to proceed with delivery tonight. (3) Fibroid uterus: Status: Acute Plan 1. Proceed with unscheduled delivery. Reviewed procedure with patient and , reviewed informed consent. Patient is allergic to adhesives, has skin reaction with itchiness. Will try to avoid direct skin adhesives, will treat wit either topical or IV corticosteroids if needed. Confirmed that there is NO history of anaphylaxis. 2. Preeclampsia w/o severe features: Initial labs with slightly elevated AST, will repeat labs in am, unless any significant clinical changes. Blood pressures at the moment mild range elevated. 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 3. High risk of bleeding in the setting of fibroid uterus, possible significant pelvic adhesive disease due to endometriosis: type and screen, TXA , Hemabate, Cytotec in room. OB Exam Physical Exam Vital signs: Pulse BP 90 165/95 H 04/16/23 22:09 04/16/23 22:09 Narrative: Bedside US confirms persistent breech, suspect footling breech presentation. Cervix checked by CNM earlier and found 1cm. NST: 130bpm/positive accelerations/moderate variability/1 variable deceleration/ irregular uterine contractions Detailed Labor and Delivery Exam Patient Gravid: Yes Dilation (cm): 1
[2023-04-16] MEDS: CEFAZOLIN 2 GM INJ IVP (23:05)
[2023-04-17] VITALS (40 sets, daily range): BP systolic 100–144; BP diastolic 57–83; PULSE 64–79; RESP 16–18; TEMP 36.6–37.2; O2SAT 95–98
--- NOTE | 2023-04-17 00:07 | SUR.OPER ---
Placenta sent to pathology. Cord blood drawn and given to OB RN. Dr. Calvert denied need for cord gas.
--- NOTE | 2023-04-17 00:27 | PM.OBPRCCS ---
OB Delivery Proc Additional Procedures Tubal Ligation at the time of : No Other: No Procedure Date of procedure: 04/17/23 Pre-op diagnosis: Preeclampsia without severe features, breech presentation Post-op diagnosis: same Procedure Done: Global [facility] your pro fee for this procedure?: Yes Blood Loss Measurement Type: QBL (383) Bakri Used: No IV fluids (mL): 700 Urine Output (mL): 300 Surgeon: Rosamaria Herrera MD Anesthesia Type: Spinal Findings: FINDINGS: Live-born female , footling breech presentation, Apgars 7 and 9 at 1 and 5 minutes respectively. weight 2880g. Evidence of salpingectomy, grossly normal ovaries. Procedure Name: Primary Low Transverse Section Procedure Description: After obtaining informed consent, the patient was taken to the operating room where spinal anesthesia was obtained and found to be adequate. She was prepared and draped in the normal sterile fashion in the dorsal supine position with a leftward tilt. A Pfannenstiel skin incision was made with a scalpel about 2 cm above symphysis pubic bone, 12-15 cm in length. This incision was carried down to the underlying layer of fascia with the Bovie and scalpel. The fascia was incised in the midline and the incision extended laterally. The superior and inferior aspects of the fascial incision were grasped with Harrison clamps, elevated and the underlying rectus muscles dissected off sharply and with electrocautery. The rectus muscles were then in the midline. The Som O retractor was then placed into the incision. The lower uterine segment was then incised in a transverse fashion with the scalpel. Upon entry into the uterus, clear amniotic fluid was noted. The uterine incision was extended cephalo caudally with blunt finger fractionation. Lower uterine segment was very thick and bandage scissors were utilized to extend the hysterotomy in a horizontal fashion. feet and leg were grasped and brought up to incision followed by the sacrum/buttocks a towel was utilized to grasped hips and with fundal pressure fetus was delivered up to scapulas, gently assisted delivery of bilateral arms and head avoiding hyperextension of the neck by performing Qaufqnisn-Datuouo-Hryd maneuver. The cord was doubly clamped and cut, and the was handed off the field to [facility] for evaluation. The placenta was delivered spontaneously with umbilical cord traction and fundal massage, true knot identified. The uterus was cleared of all clots and debris. The uterine incision was reapproximated in a running locking fashion with a 0 Vicryl suture. A 2nd layer of the same suture was used to imbricate in horizontal fashion. The gutters were inspected and cleared of blood clot. All instruments and retractors were removed. Peritoneum reapproximated with Vicryl 3-0 in a continuous fashion. The subfascial tissues were carefully inspected and hemostasis assured. The fascia was reapproximated in a running fashion with a looped 0 Vicryl suture. The subcutaneous tissues were irrigated, inspected and hemostasis was assured. The subcutaneous fat layer was reapproximated with interrupted sutures of 3-0 Vicryl. The skin was closed in a subcuticular fashion with 4-0 Monocryl. Compression type dressing (Telfa, 4x4 sponges and covered by . The patient tolerated the procedure well. Sponge, lap, needle, and instrument counts were reported as correct x2. The patient was taken to the recovery room, awake, and in stable condition. She did receive 2 grams of IV Ancef preoperatively and 1g of TXA after placenta delivery. Complications: None Pathology: specimen obtained, sent to pathology (Placenta sent to pathology) Surgery Debrief Performed: Yes Surgery Debrief Comment: Procedure name, QBL, pathology specimens. Condition: stable Disposition: floor total score - 1 minute: 7 total score - 5 minute: 9
--- NOTE | 2023-04-17 00:50 | W.ANESCHARGE ---
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
--- NOTE | 2023-04-17 00:50 | W.PM.NB ---
Nerve Block Nerve Block Time Seen by Provider: 00:33 Date Seen: 04/17/23 Type of block requested by surgeon for post-operative analgesia: TAP Side: bilateral Time out performed: Yes Verification of patient name: Yes Verification of date of : Yes Site marking: not applicable Name of person performing procedure: Aakash Ga Continuous monitoring Was continuous monitoring of O2 sat, B/P, classroom monitor, recorded every 15 minutes?: Yes Procedure Checklist: sterile prep, needles and gloves Ultrasound guided. Images saved: Yes Medications given in 5ml increments after negative aspiration: Marcaine %: 0.25 mL: 30 Needle gauge: 20 and Exparel mL: 10 Needle gauge: 20 Patient tolerated procedure well: Yes Block Charges Block Charge (with Pro Fee): TAP Bilateral Use of Ultrasound Machine for Block: Yes- US Guidance/pain block
[2023-04-17] MEDS: ONDANSETRON 2 MG/ML inj 4 MG IVP (02:30)
[2023-04-17] MEDS: KETOROLAC 30 MG/ML inj IVP ×3 (05:52→18:10)
[2023-04-17 07:57] LABS: Basophils Percent Auto 0.1 % (0.0-3.0); Hematocrit 33.9 % (33.0-51.0); Hemoglobin* 11.2 gm/dL (12.0-16.0); Immature Granulocytes Pct Auto 0.3 %; Lymphocytes Percent Auto 7.7 % (20-44); Mean Corpuscular HGB Conc 33 gm/dL (32-36); Mean Corpuscular Hemoglobin 30 pg (26-34); Mean Corpuscular Volume 92 fL (80-100); Monocytes Percent Auto 4.5 % (0.0-11.0); Neutrophils Percent Auto 87.4 % (42.0-72.0); Platelet Count* 257 K/uL (140-440); RDW Coefficient of Variation % 14.2 % (11.5-15.5); White Blood Count* 13.44 K/uL (4.50-11.00)
[2023-04-17 08:03] LABS: Slide Review Reflex No
[2023-04-17 08:15] LABS: Alanine Aminotransferase* 10 U/L (4-35); Aspartate Amino Transferase* 40 U/L (12-35); Blood Urea Nitrogen* 16 mg/dL (5-24); Creatinine* 0.6 mg/dL (0.5-1.5); Estimated Glomerular Filt Rate 121 ml/min
--- NOTE | 2023-04-17 08:32 | P.OBPN_ITS ---
OB - PN:Subj Subjective Time Seen by Provider: 07:45 Date Seen: 04/17/23 Patient comments OB post-: pain well controlled and tolerating diet status: and doing well Narrative: Renetta is a 32 y.o. who was admitted to L & D for spontaneous labor with elevated BP. ?She had an uncomplicated for breech presentation.?The patient feels well. ?The pain is well controlled with current medications. ?She has no new complaints. ?She is breast feeding and reports things are going ok.? the patient has done well.? Vitals have been stable. She did have elevated blood pressures on admission and elevated p/c ratio meeting criteria for pre-eclampsia without severe features. AST was mildly elevated but is trending down.? She has remained afebrile.? Has a good appetite, is tolerating a general diet. ?She still has a catheter in place, plan for removal today.? She is passing gas and has not had a bowel movement.? She is ambulating and denies any dizziness.? Has Small amount of rubra lochia. OB - PN: Obj Exam Physical Exam: Vital signs: Temp Pulse Resp BP Pulse Ox O2 Del Method 98.3 F 73 16 131/81 97 Room Air 04/17/23 04:45 04/17/23 04:45 04/17/23 06:05 04/17/23 04:45 04/17/23 04:45 04/17/23 04:45 Narrative: GENERAL APPEARANCE:? normal affect, alert, no distress MOOD:? appropriate CHEST:? clear to auscultation HEART:? regular rate and rhythm ABDOMEN:? soft, non-tender the uterine fundus is At Umbilicus, Midline and is appropriate for the stage of recovery. EXTREMITIES:? normal and trace edema Incision: Dressing in place; clean, dry, and intact Urinary Catheter Management: Urethral: Cath placed during this visit: yes Urethral indwelling: Yes Reason for continuing: surgical procedure Insertion date: 04/16/23 Insertion time: 23:15 OB - PN: Obj Data Labs Labs: Laboratory Results - last 24 hr 04/16/23 04/16/23 04/17/23 20:18 20:29 07:48 WBC 12.05 H 13.44 H RBC 3.88 L 3.70 L Hgb 11.7 L 11.2 L Hct 35.3 33.9 MCV 91 92 MCH 30 30 MCHC 33 33 RDW Coeff of Gentry 14.2 Plt Count 288 257 Neut % (Auto) 87.4 H Lymph % (Auto) 7.7 L [place] % (Auto) 4.5 Eos % (Auto) 0.0 Baso % (Auto) 0.1 Neut # (Auto) 11.70 H Lymph # (Auto) 1.00 [place] # (Auto) 0.60 Eos # (Auto) 0.00 Baso # (Auto) 0.00 Abs Immat Gran (auto) 0.00 Imm/Tot Granulo (auto) 0.3 BUN 12 16 Creatinine 0.7 0.6 Estimated Creat Clear 120.00 Estimated GFR 117 121 AST 42 H 40 H ALT 11 10 Urine Creatinine 28.2 Protein/Creatinin Ratio 0.40 H Urine Total Protein 12 OB - PN: A/P Delivery Assessment and Plan (1) care and examination immediately after delivery: Status: Acute (2) Lactating mother: Status: Acute (3) Pre-eclampsia in third trimester: Status: Acute Plan day: 1 Plan: routine care Comments: Routine post-operative care Pre-eclampsia w/o SF. Continue to monitor BP. Labs repeated this am were improving. Will only repeat with concerns for elevated BP and/or other Pre-e symptoms. Consulted with Dr. Lewis who agrees with plan. Anticipate discharge tomorrow (04/18) or the following day (04/19).
[2023-04-17] MEDS: DOCUSATE SODIUM 100 MG CAPSULE PO (09:22)
[2023-04-17] MEDS: ACETAMINOPHEN 500 MG TABLET 1000 MG PO ×2 (09:22→15:53)
[2023-04-17] MEDS: ENOXAPARIN 40 MG/0.4 ML INJ SUBCUT (12:42)
[2023-04-18] MEDS: KETOROLAC 30 MG/ML inj IVP ×2 (00:26→06:16)
[2023-04-18 00:37] VITALS: BP 117/77; PULSE 87; RESP 16; TEMP 36.8; O2SAT 95
[2023-04-18 05:30] VITALS: BP 133/81
--- NOTE | 2023-04-18 07:34 | PM.OBPNVD1 ---
OB - PN:Subj Subjective Date Seen: 04/18/23 Patient comments OB post-: no complaints, pain well controlled, tolerating diet and flatus present [place] status: and doing well [place] feeding status: exclusively Narrative: The patient feels well.? The pain is well controlled with current medications.? She has no new complaints.? Has a good appetite, is tolerating a general diet, is passing flatus, and has not had a bowel movement.? Has scant amount of rubra lochia.? She is ambulating well. She is and feels that it is going well. A urine catheter was replaced yesterday due to her inability to void. She has had good output since placement. RN to remove the catheter this morning. If unable to void by [id number], will repeat a bladder scan. She is requesting to have her IV acces removed. BPs have been stable since delivery and labs trending down. Discussed that there is a possibility that it could have to be replaced. She is aware and would like to have it removed. OB - PN: Obj Exam Physical Exam: Vital signs: Temp Pulse Resp BP Pulse Ox O2 Del Method 98.3 F 87 16 133/81 95 Room Air 04/18/23 00:37 04/18/23 00:37 04/18/23 00:37 04/18/23 05:30 04/18/23 00:37 04/18/23 00:37 Narrative: GENERAL APPEARANCE:? normal affect, alert, no distress? MOOD:? appropriate? CHEST:? clear to auscultation and percussion? HEART:? regular rate and rhythm? ABDOMEN:? soft, non-tender the uterine fundus is 2 cm Below Umbilicus, Midline and is appropriate for the stage of recovery. Incision dressing clean, dry and intact. EXTREMITIES:? normal and no edema? Urinary Catheter Management: Urethral: Cath placed during this visit: yes, but has since been removed by the nurse Urethral indwelling: Yes Reason for continuing: surgical procedure Insertion date: 04/16/23 Insertion time: 23:15 Removal date: 04/17/23 Removal time: 09:00 OB - PN: Obj Data Labs Labs: Laboratory Results - last 24 hr 04/17/23 07:48 WBC 13.44 H RBC 3.70 L Hgb 11.2 L Hct 33.9 MCV 92 MCH 30 MCHC 33 RDW Coeff of Gentry 14.2 Plt Count 257 Neut % (Auto) 87.4 H Lymph % (Auto) 7.7 L [place] % (Auto) 4.5 Eos % (Auto) 0.0 Baso % (Auto) 0.1 Neut # (Auto) 11.70 H Lymph # (Auto) 1.00 [place] # (Auto) 0.60 Eos # (Auto) 0.00 Baso # (Auto) 0.00 Abs Immat Gran (auto) 0.00 Imm/Tot Granulo (auto) 0.3 BUN 16 Creatinine 0.6 Estimated Creat Clear 120.00 Estimated GFR 121 AST 40 H ALT 10 OB - PN: A/P Delivery Assessment and Plan (1) care and examination immediately after delivery: Status: Acute (2) Lactating mother: Status: Acute (3) Pre-eclampsia in third trimester: Status: Acute Plan 1. Routine cares.? 2. Monitor blood pressures. Consider repeating labs if elevated. 3. Remove Calvin catheter. If unable to void in 4-5 hours repeat bladder scan. 4. Remove IV saline lock per patient request. Patient aware that may need to be replaced if condition changes. 2. Anticipate discharge tomorrow.? Plan day: 2 Plan: routine care
[2023-04-18 07:47] VITALS: BP 125/82; PULSE 88; RESP 16; TEMP 36.8
[2023-04-18] MEDS: ACETAMINOPHEN 500 MG TABLET 1000 MG PO ×2 (08:04→16:20)
[2023-04-18] MEDS: DOCUSATE SODIUM 100 MG CAPSULE PO (08:04)
[2023-04-18] MEDS: ENOXAPARIN 40 MG/0.4 ML INJ SUBCUT (11:59)
[2023-04-18] MEDS: IBUPROFEN 600 MG TABLET PO ×2 (15:13→23:38)
[2023-04-18 16:16] VITALS: BP 130/85; PULSE 87; RESP 16; TEMP 36.8
[2023-04-18 19:31] VITALS: BP 124/79; PULSE 94; RESP 16; TEMP 36.8; O2SAT 95
[2023-04-18 23:35] VITALS: BP 130/80; PULSE 89; RESP 16; TEMP 36.6; O2SAT 96
[2023-04-19 03:56] VITALS: BP 146/75; PULSE 80; RESP 16; TEMP 36.7; O2SAT 98
[2023-04-19 04:21] VITALS: BP 137/83; PULSE 81
[2023-04-19] MEDS: ACETAMINOPHEN 500 MG TABLET 1000 MG PO (04:41)
--- NOTE | 2023-04-19 07:55 | PM.OBDSVD1 ---
DS: Providers Provider Date Seen: 04/19/23 Date of admission: 04/16/23 22:10 Primary care physician: Jory Davis PA-C Admitting Clinician: Ludy Herrera MD Attending Physician on discharge: Coby Armstrong CNM Date of Discharge: 04/19/23 DS: Diagnosis Discharge Diagnosis (1) care and examination immediately after delivery: Status: Acute (2) Lactating mother: Status: Acute (3) S/P primary low transverse : Status: Acute (4) Pre-eclampsia in third trimester: Status: Acute Exam Narrative: Exam Narrative: VSS. ?AfebrileGENERAL APPEARANCE: ?normal affect, alert, no distress MOOD: ?appropriate HEENT: normocephalic, neck supple, full ROM CHEST: ?Symmetrical chest wall movement. ?Normal respiratory effort. ?Clear to auscultation HEART: ?regular rate and rhythm ABDOMEN: ?soft, non-tender. Uterine fundus is firm, 2 below the Umbilicus, Midline and is appropriate for the stage of recovery. ?Bowel sounds present. EXTREMITIES: ?normal and no edema SKIN: warm, dry. ?Incision clean/dry/well approximated. ?No signs of infection noted. Const: Vital Signs, click to edit/add: Vital Signs - 24 hr 04/18/23 16:16 04/18/23 19:31 04/18/23 23:35 Temperature 98.2 F 98.2 F 98 F Pulse Rate [Pulse Oximeter] 87 94 89 Respiratory Rate 16 16 16 Blood Pressure [Le ft Arm] 130/85 124/79 130/80 Pulse Oximetry 95 96 Oxygen Delivery Me thod Room Air Room Air 04/19/23 03:56 04/19/23 04:21 Temperature 98.1 F Pulse Rate [Pulse Oximeter] 80 81 Respiratory Rate 16 Blood Pressure [Le ft Arm] 146/75 H 137/83 Pulse Oximetry 98 Oxygen Delivery Me thod Room Air Documenting provider has reviewed patient's vital signs: yes OB - DS: Summary Hospital Course Hospital Course: Renetta is a 32 year old G 3 P 1 at 38.4 weeks gestation that was admitted to the Center on 04/16/23 for primary section for breech position. She was diagnosed with Preeclampsia without severe features. Post her blood pressures have been stable. She had an uncomplicated delivery. She delivered a viable female infant. The patient feels well. ?The pain is well controlled with current medications. ?She has no new complaints. ?She is breast feeding and reports things are going well. the patient has done well.? Vitals have been stable.? She has remained afebrile.? Has a good appetite, is tolerating a general diet. ?She is voiding without difficulty.? She is passing gas and has not had a bowel movement.? She is ambulating and denies any dizziness.? Has small amount of rubra lochia. She has had a tubal ligation in the past, this was conceived with IVF. Problems: Preeclampsia without severe features. S/P primary low transverse section. Lactating mother. plan: Discharge home with baby. Follow up in 2 weeks and 6 weeks. , may see if needed Hgb 11.2. Continue with Iron supplement orally every other day. Elevated BPs shortly after delivery. ?WNL now. -Follow up in 3-5 days-Call for signs/symptoms of preeclampsia Peripartum Data Infant delivery method: Primary C/S; Non-Labored Laceration description: None Procedures: Procedures Operation Date: 04/16/23 23:00 Actual Procedure Side Surgeon p Section Ludy Herrera MD complications: none Gender: Female Discharge Plan: Home Status at Discharge Functional status at discharge: independent ambulation Overall status at discharge: patient is progressing back to baseline Time Spent with Patient Time attestation: Total time spent providing and/or coordinating discharge services: Time spent: Less than 30 minutes Discharge Plan Discharge Disposition: Home, Self-Care Date of Admission: 04/16/23 22:10 Attending Provider on Discharge: Coby Armstrong Primary Care Provider: Jory Davis Condition: Stable Anticipated Discharge Date/Time: 04/19/23 12:00 Discharge Medications: New acetaminophen 500 mg Tablet 1,000 mg PO Q6H PRN (Reason: Pain) Qty: 0 0RF docusate sodium 100 mg Capsule 100 mg PO DAILY Qty: 90 3RF ibuprofen 600 mg Tablet 600 mg PO Q6H PRN (Reason: Pain) Qty: 60 0RF oxycodone 5 mg Tablet 5 - 10 mg PO Q4H PRN (Reason: Pain) Qty: 10 0RF Continued ferrous sulfate 325 mg (65 mg iron) tablet 325 mg PO Q OTHER DAY cholecalciferol (vitamin D3) 100 mcg (4,000 unit) capsule 4,000 unit PO DAILY fvlqwcqj-fpk-Sb-FA 1 mg tablet 2 tab PO DAILY triamcinolone acetonide 0.1 % cream 1 applic TOPICAL PRN PRN Patient Comments: APPLY TOPICALLY TO THE AFFECTED AREA THREE TIMES DAILY Discontinued docusate sodium [Colace] 100 mg capsule 100 mg PO QDAY aspirin 81 mg tablet,chewable 81 mg PO DAILY Discharge Orders: Discharge Order (Routine); Ordered 04/19/23 Ordered By: Coby Armstrong Patient Education: OB Over the Counter Medication Information, OB /Breast Feeding Additional Instructions: Discharge instructions were reviewed with the patient including signs and symptoms of infection and home going medications Lifting Restrictions: 20 pounds for 6 weeks No not submerge incision under water X 2 weeks? Nothing vaginally for 6 weeks: no tampons or intercourse Do not drive while taking narcotic pain medication(s) Off Work or School for 6 weeks [facility] for a BP check?04/21 or 04/24 Call with BP greater than or equal to 160/110 2-week visit: incision check, discuss infant feeding concerns, review control options and screen for anxiety/depression. 6-week visit for an annual exam. consultation services are available to all mothers and babies for the first year after delivery.? To make an appointment, please call [phone]. Activity Level: Activity as Tolerated Discharge Diet: Regular Follow Up Appointments: [facility] [Provider Group] Jory Davis PA-C [Primary Care Provider] - Forms: [employer] Info Instructions
[2023-04-19] MEDS: IBUPROFEN 600 MG TABLET PO (08:12)
[2023-04-19] MEDS: DOCUSATE SODIUM 100 MG CAPSULE PO (08:13)
[2023-04-19 08:58] VITALS: BP 122/80; PULSE 81; RESP 16; TEMP 36.7
[2023-04-19] MEDS: ENOXAPARIN 40 MG/0.4 ML INJ SUBCUT (10:27)
[2023-04-23 20:54] VITALS: BP 142/75; PULSE 98
--- NOTE | 2023-04-24 11:56 | PC.NURSE ---
Addendum entered and electronically signed by Karen Iglesias RN 04/24/23 12:13: Correction: Vital Signs late entry on Sunday April 16, 2023 from 2200 to 2208 due to Monitor tracing on incorrect patient account. Vital signs transcribed to correct account that were taken from the monitor by Franki Iglesias RN. Original Note: Vital signs late entry on Monday from 2123 to 2208 due to Monitor tracing on incorrect account. Vital signs transcribed to correct account that were taken from the monitor by Franki Iglesias RN.
== END 2023-04-19 11:11 | disposition home or self-care (01) | DRG 788 ==
LOC: OB 22:10
PROVIDERS: Admitting Provider Obstetrics & Gynecology; PCP Student in an Organized Health Care Education/Training Program; Visit Provider Obstetrics & Gynecology
PROC: (CPT 59514; principal; 2023-04-16 22:45)
DX: O32.1XX0 Maternal care for breech presentation, not applicable or unspecified (principal); O14.04 Mild to moderate pre-eclampsia, complicating childbirth; Z37.0 Single live birth; O99.02 Anemia complicating childbirth; D64.9 Anemia, unspecified; O99.344 Other mental disorders complicating childbirth; F41.9 Anxiety disorder, unspecified; G89.18 Other acute postprocedural pain; Z3A.38 38 weeks gestation of pregnancy
CPT/HCPCS: 01961; 36415; 51798; 64488; 76815; 76942; 82565; 82570; 84156; 84450; 84460; 84520; 85018; 85025; 85027; 86850; 86870; 86880; 86900; 86901; 88307; 99140; A9270; C9290; J0665; J0690; J1650; J1885; J2274; J2371; J2405; J2590

== ENCOUNTER 2023-04-21 13:40 | Outpatient (CLI) | payer OTHER, SELFPAY ==
[2023-04-21] VITALS (7 sets, daily range): BP systolic 131–150; BP diastolic 73–86; PULSE 92–101; RESP 18; TEMP 37.2
--- NOTE | 2023-04-21 14:07 | P.OBO_ITS ---
OB Outpatient HPI History of Present Illness History of Present Illness: Renetta is a 32 yo at 5 days that was sent by provider for further work-up after virtual clinic visit where she reported elevated BP's on home blood pressure monitoring. She was recommended to be evaluated in Labor and Delivery, Dr. Walsh agrees and is aware of patient. She reported multiple elevated BP's above 160/90 but most in the 150/90's. She has a mild headache, it has not improved with Tylenol, ibuprofen, or rest. She denies any visual changes, epigastric pain, or increased swelling. Patient had a section on 04/16 due to breech presentation and was diagnosed with pre-eclampsia without severe features based on elevated blood pressures and elevated p/c ratio. AST was mildly elevated at 40, down from 42 prior to delivery. She was discharged home with blood pressures 120- 130/90's. Meds Home Medications and Allergies Home Medications Medication Instructions Recorded Confirmed Type cholecalciferol (vitamin D3) 100 4,000 unit PO DAILY 12/29/21 04/16/23 History mcg (4,000 unit) capsule oytvlkcy-yeu-Yv-FA 1 mg 2 tab PO DAILY 12/29/21 04/17/23 History tablet triamcinolone acetonide 0.1 % 1 applic topical PRN PRN 10/14/22 04/16/23 History topical cream ferrous sulfate 325 mg (65 mg 325 mg PO Q OTHER DAY 02/17/23 04/16/23 History iron) tablet Allergies Allergy/AdvReac Type Severity Reaction Status Date / Time chocolate flavor Allergy Severe Anaphylaxis Verified 04/10/23 15:06 adhesive Allergy Mild Verified 04/10/23 15:06 blueberry Allergy Mild Abdominal Verified 04/10/23 15:06 Pain tramadol Allergy Mild vomiting Verified 04/10/23 15:06 and shakes [facility] Medical History ?O03.9 - Complete or unspecified spontaneous without complication (ICD-10) GERD (gastroesophageal reflux disease) ?K21.9 - Gastro-esophageal reflux disease without esophagitis (ICD-10) Endometriosis ?N80.9 - Endometriosis, unspecified (ICD-10) Surgical History Hx of wisdom tooth extraction ?K08.409 - Partial loss of teeth, unspecified cause, unspecified class (ICD- 10) H/O endoscopy ?Z98.890 - Other specified postprocedural states (ICD-10) History of bilateral salpingectomy ?Z90.79 - Acquired absence of other genital organ(s) (ICD-10) History of laparoscopy ?Z98.890 - Other specified postprocedural states (ICD-10) History of arthroscopic knee surgery ?Z98.890 - Other specified postprocedural states (ICD-10) History of open reduction and internal fixation (ORIF) procedure ?Z98.890 - Other specified postprocedural states (ICD-10) Family History Family/Other Coronary artery disease Stroke High blood pressure High cholesterol Paternal Grandmother Cancer Social History What is your current living situation?: I presently have a place to live Problems where you live: no known problems In the past 12 months, utilities in danger of being shut off: no In past 12 months, lack of transportation kept you from medical appts, meetings, work, or getting things needed for daily living: no In the past 12 mos, have been you worried that your food would run out before you had money to buy more?: never true In the past 12 mos, the food you bought just didn't last and you didn't have money to buy more?: never true Smoking Status: Former smoker Do you use any of these nicotine containing products: None Second hand tobacco smoke exposure: No How often do you have a drink containing alcohol: never AUDIT-C Alcohol total score: 0 Non-prescribed substance use: denies use How often does anyone, including family, friends and others, physically hurt you : never How often does anyone, including family, friends and others, insult or talk down to you: never How often does anyone, including family, friends and others, threaten you with harm: never How often does anyone, including family, friends and others, scream or curse at you: never Little interest or pleasure in doing things: not at all Feeling down, depressed, or hopeless: not at all service: No History History 3 Elective abortions 1 Para 1 Spontaneous abortions 1 Hx # Term Pregnancies Ectopic pregnancies Hx # Pregnancies Multiple births Number of Living Children 0 Past Pregnancies Del. Date GA/Weeks Outcome Route wt Inf Gender Labor Lgth Anesthesia Location Provider Compli 04/06/19 elective 05/29/22 5 spontaneous Delivery Date: 05/29/22 Last Updated by: Darlene Esteban ~ [employer], [facility] OB - H&P: Exam Physical Exam Vital signs: Pulse BP 93 133/82 04/21/23 13:57 04/21/23 13:57 Narrative: GENERAL APPEARANCE:? normal affect, alert, no distress MOOD:? appropriate CHEST:? clear to auscultation HEART:? regular rate and rhythm EXTREMITIES:? normal and trace edema, no clonus, +2 reflexes Assessment and Plan Assessment and plan (1) Pre-eclampsia: Status: Acute (2) S/P primary low transverse : Status: Acute (3) Lactating mother: Status: Acute (4) Headache: Status: Acute Plan s/p section on 04/16 day 5 Pre-eclampsia without severe features with Severe range BP's at home. Discussed BP's with Dr. Walsh. She recommends observation of BP's in triage and pre-e labs to rule out severe pre-e, they are currently pending. Headache, not relieved with Ibuprofen or Tylenol. Can try additional medications if needed.
[2023-04-21 14:22] LABS: Hematocrit 33.9 % (33.0-51.0); Hemoglobin* 11.1 gm/dL (12.0-16.0); Mean Corpuscular HGB Conc 33 gm/dL (32-36); Mean Corpuscular Hemoglobin 30 pg (26-34); Mean Corpuscular Volume 93 fL (80-100); Platelet Count* 364 K/uL (140-440); Red Blood Count 3.65 m/uL (4.00-5.20); White Blood Count* 8.52 K/uL (4.50-11.00)
[2023-04-21 14:35] LABS: Alanine Aminotransferase* 14 U/L (4-35); Aspartate Amino Transferase* 32 U/L (12-35); Blood Urea Nitrogen* 16 mg/dL (5-24); Creatinine* 0.7 mg/dL (0.5-1.5); Estimated Glomerular Filt Rate 117 ml/min
[2023-04-21 14:45] LABS: Slide Review Reflex No
--- NOTE | 2023-04-21 17:14 | PC.NURSE ---
BP cuffed changed from reg. cuff to large cuff after first BP at 1341. Arm measured and pt should have the large cuff.
== END 2023-04-21 15:20 | disposition home or self-care (01) ==
LOC: OB 14:56 → OB OUT 15:36
PROVIDERS: PCP Student in an Organized Health Care Education/Training Program; Visit Provider Advanced Practice Midwife
DX: O14.93 Unspecified pre-eclampsia, third trimester (principal); Z3A.38 38 weeks gestation of pregnancy
CPT/HCPCS: 36415; 82565; 84450; 84460; 84520; 85027; 99213

== ENCOUNTER 2023-05-31 10:43 | Outpatient (REF) | payer OTHER, SELFPAY | END 2023-05-31 10:44 | disposition home or self-care (01) | LOC: NFLDREF 10:43 | PROVIDERS: PCP Student in an Organized Health Care Education/Training Program; Referring Provider Student in an Organized Health Care Education/Training Program; Visit Provider Advanced Practice Midwife | DX: O99.280 Endocrine, nutritional and metabolic diseases complicating pregnancy, unspecified trimester (principal); E03.9 Hypothyroidism, unspecified | CPT/HCPCS: 84443 ==

== ENCOUNTER 2023-08-17 08:55 | Outpatient (CLI) | payer OTHER, SELFPAY | END 2023-08-17 08:56 | disposition home or self-care (01) | LOC: NFLDREF 08-18 07:09 | PROVIDERS: PCP Student in an Organized Health Care Education/Training Program; Referring Provider Student in an Organized Health Care Education/Training Program; Visit Provider Physician Assistant | DX: R11.2 Nausea with vomiting, unspecified (principal); R19.7 Diarrhea, unspecified | CPT/HCPCS: 87086 ==